=== PATIENT | male | born 1980 | race African-American/Black ===

== ENCOUNTER 2016-05-25 17:12 | Emergency (ER) | payer MEDICAID ==
[~2016-05-25] VITALS: Ht 185.4 cm; Wt 101.6 kg
[~2016-05-25 17:12] MED LIST: DEPAKOTE250 MG PO; DILANTIN100 MG PO; RISPERDAL3 MG PO; SEROQUEL25 MG PO
[2016-05-25] MEDS ORDERED: LEVETIRACETAM500 MG ORAL (17:33)
[2016-05-25] MEDS ORDERED: CITALOPRAM HBR20 M1 ORAL (17:33)
[2016-05-25] MEDS ORDERED: ABILIFY10 MG ORAL (17:33)
[2016-05-25 17:53] VITALS: BP 156/89
--- NOTE | 2016-05-25 18:05 | Emergency Room Report ---
History of Present Illness General Chief Complaint: Hypertension Source: Patient Present Illness HPI 35-year-old male presents emergency department complaining of elevated blood pressure times one week. Patient states that he is a resident at psychiatric facility and earlier today he had progressive headache in addition to one episode of non-bloody vomiting after smoking a cigarette and drinking coffee. facility measured BP and it was noted to be elevated. Pt states ROWE has subsided at this time. denies nausea or abdominal pain. denies fever, chills, ill contacts or recent illness. Patient states that he previously was diagnosed with high blood pressure and used to take hydrochlorothiazide regularly however his doctor eventually stated that he did not need it anymore. he has not taken hydrochlorothiazide in over 3 months. Patient denies dizziness, weakness, changes in vision. 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 Denies neck pain/ neck stiffness, CP, Palpitations, LOC, AMS, dizziness, Changes in Vision, Sensation, paresthesias, or a sudden severe headache. Allergies: Coded Allergies: No Known Allergies (Unverified , 06/20/12) Patient History Past Medical History: see triage record Past Surgical History: none Pertinent Family History: none Immunizations: UTD Reviewed Nursing Documentation: PMH: Agreed, PSxH: Agreed Nursing Documentation-PMH Hx Hypertension: Yes History Of Psychiatric Problem: Yes - Bipolar D/O, Paranoid schizophrenic Hx Seizures: Yes Review of Systems All Other Systems: negative except mentioned in HPI Physical Exam Vital Signs Date Time Temp Pulse Resp B/P Pulse Ox O2 Delivery O2 Flow Rate FiO2 05/25/16 17:24 98.2 70 16 154/92 99 Room Air Sp02 EP Interpretation: reviewed, abnormal - elevated BP at 152/92 General Appearance: no apparent distress, alert, GCS 15, non-toxic Head: normocephalic, atraumatic Eyes: bilateral eye PERRL, bilateral eye normal inspection ENT: hearing grossly normal, normal pharynx, no angioedema, normal voice Neck: full range of motion, no meningismus, no bony tend, supple/symm/no masses Respiratory: chest non-tender, lungs clear, normal breath sounds, speaking full sentences Cardiovascular #1: regular rate, rhythm, no edema Gastrointestinal: normal bowel sounds, non tender, soft, no mass, non-distended , no guarding, no hernia, no pulsatile mass, no rebound Rectal: deferred Musculoskeletal: back normal, gait/station normal, normal range of motion, non- tender, no calf tenderness Neurologic: alert, oriented x3, responsive, motor strength/tone normal, sensory intact, cerebellar normal, normal gait, speech normal, no pronator Psychiatric: judgement/insight normal, memory normal, mood/affect normal, no suicidal/homicidal ideation Skin: normal color, no rash, warm/dry, well hydrated Lymphatic: no adenopathy Medical Decision Making PA Attestation Dr. Evans is my supervising Physician whom patient management has been discussed with. Diagnostic Impression: Primary Impression: Elevated blood pressure reading Additional Impression: Hypertension Qualified Codes: I10 - Essential (primary) hypertension ER Course 35-year-old male presents emergency department complaining of elevated blood pressure times one week. Patient states that he is a resident at psychiatric facility and earlier today he had progressive headache in addition to one episode of non-bloody vomiting after smoking a cigarette and drinking coffee. facility measured BP and it was noted to be elevated. Pt states ROWE has subsided at this time. Ddx considered but are not limited to HTN, ICH, medication non-compliance, drug use/abuse, tension ROWE, just to name a few. Vital signs: are WNL, pt. is afebrile H&PE are most consistent with elevated BP with Hx of HTN. ORDERS: none required at this time, the diagnosis is clinical ED INTERVENTIONS: None required at this time. -d/w pt that I will re-prescribe him low-dose hydrochlorothiazide and they need to followup with PCP for continued blood pressure monitoring and medication management. --She verbalizes his understanding and agreement with her post treatment plan. DISCHARGE: At this time pt. is stable for d/c to home. Will provide printed patient care instructions, and any necessary prescriptions. Care plan and follow up instructions have been discussed with the patient prior to discharge. Last Vital Signs Date Time Temp Pulse Resp B/P Pulse Ox O2 Delivery O2 Flow Rate FiO2 05/25/16 17:53 98.4 72 15 156/89 98 Room Air Disposition: HOME, SELF-CARE Condition: Stable Scripts Hydrochlorothiazide* (HYDROCHLOROTHIAZIDE*) 12.5 Mg Capsule 12.5 MG ORAL DAILY for 30 Days, #30 CAP Prov: Awa Edgar 05/25/16 Patient Instructions: High Blood Pressure (Hypertension) Additional Instructions: Take medications as directed. Follow up with PCP in 3-5 days to evaluate and discuss BP medication management. Return sooner to ED if new symptoms occur, or current symptoms become worse. Awa Edgar May 25, 2016 18:05
[2016-05-25] MEDS ORDERED: HYDROCHLOROTH12.5 M2 ORAL (18:06)
[2016-05-25 18:28] VITALS: BP 156/89
== END 2016-05-25 18:28 | disposition home or self-care (01) ==
LOC: EMR 17:49
DX: I10 Essential (primary) hypertension (principal); F31.9 Bipolar disorder, unspecified; F20.0 Paranoid schizophrenia
CPT/HCPCS: 99283